=== PATIENT | female | born 1965 | race Two or more races ===

== ENCOUNTER 2025-09-15 13:07 | Outpatient (REF) | payer BC, SELFPAY ==
--- NOTE | ~2025-09-15 | XR_ITS ---
EXAMINATION: XR SHOULDER 2 OR MORE VIEWS LEFT HISTORY: M25.512 - Pain in left shoulder COMPARISON: There are no prior studies available for comparison. FINDINGS: Five views of the left shoulder are submitted. Osseous mineralization is normal. There is no fracture or dislocation. The glenohumeral and acromioclavicular joint spaces are preserved. The soft tissues are unremarkable. XR/XR shoulder LT min 2V IMPRESSION: Unremarkable examination of the left shoulder. Electronically signed by: Yung Rodriguez MD 09/15/2025 03:46 PM EST RP
--- NOTE | ~2025-09-15 | XR_ITS ---
EXAMINATION: XR HAND 1-2 VIEWS LEFT HISTORY: M79.642 - Pain in left hand COMPARISON: There are no prior studies available for comparison. FINDINGS: Three views of the left hand are submitted. Osseous mineralization is normal. There is no fracture or dislocation. The joint spaces are preserved. The soft tissues are unremarkable. XR/XR hand LT 2V IMPRESSION: Unremarkable examination of the left hand. Electronically signed by: Yung Rodriguez MD 09/15/2025 03:45 PM EST
== END 2025-09-15 13:08 | disposition home or self-care (01) ==
LOC: HO.XRAY 13:07
PROVIDERS: PCP Internal Medicine; Visit Provider Internal Medicine
DX: Z23 Encounter for immunization (principal); M25.512 Pain in left shoulder; M79.642 Pain in left hand; I10 Essential (primary) hypertension; I82.409 Acute embolism and thrombosis of unspecified deep veins of unspecified lower extremity; R73.01 Impaired fasting glucose; G89.29 Other chronic pain; Z79.01 Long term (current) use of anticoagulants; Z79.899 Other long term (current) drug therapy
CPT/HCPCS: 73030; 73120; 90471; 90656; 96127

== ENCOUNTER 2025-09-15 13:07 | Outpatient (AMB) | payer BC, SELFPAY ==
--- NOTE | 2025-09-15 13:10 | A.OFFPC_ITS ---
Vital Signs 09/15/25 13:13 Height 5 ft 2.75 in Weight 192 lb 4 oz BMI 34.3 BP 120/84 Blood Pressure Location Lt brachial Position Sitting Respiration 16 Pulse 91 Pulse Source Pulse Oximeter Temp 97.3 F Temp Source Temporal Artery Scan Pulse Oximetry (%) 97 Oxygen Delivery Method Room Air Intake Visit Reasons: [facility] pt, [facility] Retail Pos Specialist Required: No Accompanied by: Mother Allergies No Known Allergies Allergy (Verified 09/15/25 13:17) Medication List - Last Reconciled 09/15/25 by Alyssa Waldron MD apixaban (Eliquis) 5 mg PO BID atorvastatin 20 mg PO DAILY famotidine (Pepcid AC) 20 mg PO DAILY lidocaine 5% 1 patch topical DAILY linaclotide (Linzess) 72 mcg PO DAILY multivitamin 1 tab PO DAILY Tobacco use date assessed: 09/15/25 Dental Screening Dental Screen Date: 09/15/25 Did you have a dental visit in the last 12 months?: Yes Did you have a dental problem in the last 6 months where you did not have access to dental care?: No Was dental information given to patient?: Patient has dentist HPI HPI Comments History of Present Illness Details The patient is a 59 year old female presenting to [facility]. Left upper extremity paresthesia and weakness: The patient reports left upper extremity symptoms that began in September 2024, initially as numbness in the thumb. The symptoms have since progressed to include numbness in four fingers, hand swelling, tingling, and significantly reduced box bender strength, causing the patient to drop items. The patient reports right-hand overcompensation and experiences symptoms radiating down the left arm when a specific point on the posterior aspect of the arm is touched. The patient underwent a workup including an EMG exam, neck MRI, neck X-rays all of which were negative for a left-sided etiology. The patient completed a course of physical therapy for the neck without resolution and is currently in a second course of neck-focused physical therapy. Has been to [facility]. Recurrent Deep Vein Thrombosis: The patient has a history of recurrent deep vein thrombosis and is managed with Eliquis 5 mg twice daily. Borderline diabetes- due for repeat a1c Hyperlipidemia: The patient has a history of hyperlipidemia and reports taking atorvastatin. Gastrointestinal Health: The patient manages gastroesophageal reflux with dvwt-[id number] famotidine and takes Linzess 72 mcg for constipation. Social History: - Functional Status: Reports difficulty with fine motor skills and box bender in the left hand, which affects driving and the ability to hold small objects. - Exercise: Currently undergoing physica l therapy focused on the neck. [facility] Medical History (Updated 09/15/25 @ 17:56 by Alyssa Waldron MD) Left hand pain Left shoulder pain History of thrombolytic therapy Cervical radiculopathy Primary hypertension GERD (gastroesophageal reflux disease) Impaired fasting glucose Recurrent deep vein thrombosis (DVT) Surgical History (Updated 09/15/25 @ 13:31 by lAyssa Waldron MD) Previous section History of colonoscopy (~09/17/24) Family History (Updated 09/15/25 @ 13:27 by Alyssa Waldron MD) Mother Colon polyp Social History Housing: Apartment Patient Tobacco Use Status: Never used Tobacco e-Cigarette/Vaping Use: Never Used service: No Current occupational status: employed 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 1. Little interest or pleasure in doing things: not at all 2. Feeling down, depressed, or hopeless: several days 3. Trouble falling or staying asleep, or sleeping too much: not at all 4. Feeling tired or having little energy: several days 5. Poor appetite or overeating: not at all 6. Feeling bad about yourself - or that you are a failure or have let yourself or your family down: not at all 7. Trouble concentrating on things, such as reading the newspaper or watching television: not at all 8. Moving or speaking so slowly that other people could have noticed. Or the opposite - being so fidgety or restless that you have been moving around a lot more than usual: not at all 9. Thoughts that you would be better off or of hurting yourself in some way: not at all Total score: 2 Depression Screening Interpretation: Negative Depression Screening Done: Yes 51974 - PHQ-9 Billing: Yes Source: Developed by Drs. Yung Mcfarlane, Summer Lee, Federico Osei and colleagues, with an educational kenzie from [email or web address]. Thrive Questionnaire Date Thrive assessed: 09/15/25 I am a: Patient What is your living situation today?: I have a steady place to live Within the past 12 months, did the food you bought not last and you didn't have the money to get more?: Never true Within the past 12 months, did you worry whether your food would run out before you got money to buy more?: Never true Do you have trouble paying for medicines?: No Do you have trouble getting transportation to medical appointments?: No Do you have trouble paying your heating and electricity bill?: No Do you have trouble taking care of your child, family member or friend?: No Do you have trouble with day-to-day activities such as bathing, preparing meals, shopping, managing finances, etc.?: No Are you currently unemployed and looking for a job?: No Are you interested in more education?: Yes Please select the resources that you would like help with: Care for elder or disabled Currently or been in a relationship where the following occur: No concerns reported THRIVE Score: 0 AUDIT C Alcohol Use Questionnaire (AUDIT-C) 1. How often do you have a drink containing alcohol?: 2-4 times a month 2. How many drinks containing alcohol do you have on a typical day when you are drinking?: 1 or 2 3. How often do you have six or more drinks on one occasion?: Never Total Score: 2 ANIL-7 AMB Questionnaire ANIL-7 Date ANIL - 7 assessed: 09/15/25 Feeling nervous, anxious, or on edge: 1 = Several days Not being able to stop or control worryin = Several days Worrying too much about different things: 1 = Several days Trouble relaxin = Several days Being so restless that it is hard to sit still: 1 = Several days Becoming easily annoyed or irritable: 1 = Several days Feeling afraid as if something awful might happen: 0 = Not at all Total ANIL-7 score (0-4 normal; 5-9 mild; 10-14 moderate; 15-21 severe): 6 Source: Developed by Drs. Yung Mcfarlane, Summer Lee, Federico Osei and colleagues, with an educational kenzie from [employer] Review of Systems Narrative Review of Systems - Neurological: Reports numbness, tingling, and swelling in the left hand, involving four fingers. - Musculoskeletal: Reports left shoulder pain and neck pain. Physical exam (Primary Care) Vital Signs: Last Vital Signs Temp 97.3 F 09/15/25 13:13 Pulse 91 09/15/25 13:13 Resp 16 09/15/25 13:13 BP 120/84 09/15/25 13:13 Pulse Ox 97 09/15/25 13:13 Oxygen Delivery Method Room Air 09/15/25 13:13 BMI result Body Mass Index 34.3 Tobacco/Smoking Status: Tobacco use Status Tobacco use date assessed 09/15/25 09/15/25 13:11 Patient Tobacco Use Status Never used Tobacco 09/15/25 13:20 e-Cigarette/Vaping Use Never Used 09/15/25 13:20 PHQ-9: PHQ-9 Score PHQ-9: Total score 2 09/15/25 15:02 Depression Screening Interpretation: Negative Thrive Assessment: Date of Thrive Assessment Date Thrive assessed 09/15/25 09/15/25 13:20 Currently or been in a relationship where the following occur: No concerns reported Narrative Physical Exam - Cardiovascular: Normal heart sounds. - Respiratory: Lungs are clear on auscultation bilaterally - Musculoskeletal: Palpation reveals tenderness over the upper trapezius and anterior shoulder. - Neurological: Certification Engineer strength is 5/5 on the right and approximately 4/5 on the left, Office Procedures Flu Questionnaire Does the patient have a severe egg allergy?: No Does the patient have severe life threatening allergies?: No Does the patient have a fever or illness today?: No Has the patient ever had Guillain-Williamson Syndrome?: No Has the patient ever had any past reaction to a flu shot?: No Immunizations Fluarix [id number] (PF) 45 mcg (15 mcg x 3)/0.5 mL IM syringe Performing Provider: Alyssa Waldron MD Performing Location: [facility] [place] Adult Primary Care-10 HD Administered by: Lianna Roth CMA on 09/15/25 14:22 Dose Route Admin Location Dispensed Lot Number Expiration Date NEC Cardiology Technologist 0.5 mL IM Right Deltoid 0.5 mL [id number] 04/21/26 29501-907-92 [employer] Clothing VIS Given Date VIS Provided VIS Publication Date 09/15/25 Single Vaccine 24 Eligibility Eligibility Date Funding Source Not [facility] Eligible 09/15/25 [facility] Coding Level of Care Code Est Pt Level 4 (20863) Complex visit Add On G2211 Diagnoses Primary hypertension I10 Recurrent deep vein thrombosis (DVT) I82.409 Impaired fasting glucose R73.01 Chronic left shoulder pain M25.512; G89.29 Chronicity: chronic Additional Codes PHQ-9 - 57437 - PHQ-9 Billing: Yes ([id number]) Assessment & Plan Assessment & Plan (1) Primary hypertension: Code(s): I10 - Essential (primary) hypertension Category: Medical (2) Recurrent deep vein thrombosis (DVT): Code(s): I82.409 - Acute embolism and thrombosis of unspecified deep veins of unspecified lower extremity Category: Medical (3) Impaired fasting glucose: Code(s): R73.01 - Impaired fasting glucose Category: Medical (4) Left shoulder pain: Code(s): M25.512 - Pain in left shoulder Category: Medical Qualifiers: Chronicity: chronic Qualified Code(s): M25.512 - Pain in left shoulder; G89.29 - Other chronic pain Plan Assessment and Plan 1. Left upper extremity paresthesia and weakness - The patient presents with progressive numbness, weakness, and swelling in the left hand and arm since last September. Despite a negative workup for cervical radiculopathy (including MRI, X-ray, and NCV), symptoms persist. The physical exam confirms reduced left box bender strength. The etiology remains unclear, and further investigation is warranted to explore pathology distal to the cervical spine. - Plan: Order X-rays of the left shoulder and left hand. Request records from prior MRI and EMG studies. Consider a referral to Physical Medicine and Rehabilitation for a second opinion pending imaging results. 2. Health Maintenance - Plan: Order fasting labs, including an A1c, lipid panel, and liver/kidney function tests. 3. History of recurrent DVT - The patient is stable on current anticoagulation therapy. - Plan: Continue Eliquis 5 mg twice daily. The patient will notify the office if refills are needed. 4. Hyperlipidemia - The condition is medically managed. - Plan: Continue atorvastatin. Monitor with the planned lipid panel. 5. Gastrointestinal issues (GERD, constipation) - The patient's symptoms are controlled with current medications. - Plan: Continue oauz-tdd-irvzhwz famotidine and prescription Linzess 72 mcg. 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 Plan - Imaging: An X-ray of the left shoulder and left hand will be obtained. - Labs: Fasting labs will be drawn to check A1c, cholesterol profile, and liver/kidney function. - Referrals: A potential referral to Physical Medicine and Rehabilitation will be considered after reviewing the new imaging results. - Medications: The patient will continue with the current medication regimen, including Eliquis, atorvastatin, and Linzess. - Follow up in 6 months for physical Discussion Notes We discussed the persistent and progressing symptoms of numbness, tingling, and weakness in the patient's left hand and arm, which have been present since last September. I informed the patient that depending on the results, a referral to a physical medicine and workplace rehabilitation officer might be the next step for a second opinion. Patient Instructions - Please proceed to get X-rays of your left shoulder and left hand today as ordered. - You will need to go to the lab for blood work. Please fast (do not eat or drink anything other than water) before you go. This will check your blood sugar, cholesterol, and kidney and liver function. - Continue taking all of your current medications as prescribed. - Continue with your current physical therapy appointments. - We may refer you to a specialist for Physical Medicine and Rehabilitation for a second opinion after we review your X-ray results. - Be sure to follow up with your poolroom/poolhall manager (stomach doctor). Orders: Orders Influenza [id number] Immunization Today Z23 - Encounter for immunization Comprehensive Met. Panel Today I10 - Essential (primary) hypertension, I82.409 - Acute embolism and thrombosis of unspecified deep veins of unspecified lower extremity, R73.01 - Impaired fasting glucose Hemoglobin A1c Today I10 - Essential (primary) hypertension, I82.409 - Acute embolism and thrombosis of unspecified deep veins of unspecified lower extremity, R73.01 - Impaired fasting glucose XR shoulder LT min 2V Today M25.512 - Pain in left shoulder XR hand LT 2V Today M79.642 - Pain in left hand Complete Blood Count Auto Diff Today I10 - Essential (primary) hypertension, I82.409 - Acute embolism and thrombosis of unspecified deep veins of unspecified lower extremity, R73.01 - Impaired fasting glucose Lipid Panel Today I10 - Essential (primary) hypertension, I82.409 - Acute embolism and thrombosis of unspecified deep veins of unspecified lower extremity, R73.01 - Impaired fasting glucose Microalbumin, Random (w Creat) Today I10 - Essential (primary) hypertension
[2025-09-15 13:13] VITALS: BP 120/84; PULSE 91; RESP 16; TEMP 36.3; O2SAT 97; BMI 34.3
--- OUTSIDE RECORDS SUMMARY | 2025-09-15 17:41 | XMS_ITS | Clinical Summary ---
Author Organization [facility] Address [address] [place] [phone] Phone Care Team Providers Care Manager Mobile Name Role Phone Alyssa Waldron MD Primary Care Provider [phone] Allergies No known active allergies Medications apixaban (Eliquis) 5 mg tablet Take 1 tablet (5 mg total) by mouth 2 (two) times a day. Active linaCLOtide (Linzess) 72 mcg capsule Take 1 capsule (72 mcg total) by mouth 1 (one) time each day. Active amLODIPine (NORVASC) 5 mg tablet Take by mouth 1 (one) time each day. Active atorvastatin (LIPITOR) 20 mg tablet Take 1 tablet (20 mg total) by mouth at bedtime. Active multivit-min/ir on/FA/vit K/lut (CENTRUM SILVER WOMEN ORAL) Take by mouth. Active famotidine (PEPCID AC ORAL) Take by mouth. Active albuterol HFA (PROAIR HFA ; PROVENTIL HFA ; VENTOLIN HFA) 90 mcg/actuation inhaler Inhale 2 puffs by mouth every 6 (six) hours if needed for wheezing. Active glucose 4 gram chewable tablet Chew 4 tablets (16 g total) if needed for low blood sugar. Active Surgical History Surgery Date Site/Laterality Comments SECTION PROCEDURE: [facility] DELIVERY ONLY OTHER SURGICAL HISTORY PROCEDURE: [facility] LIG/TRNSXJ FLP TUBE ABDL/VAG APPR UNI/BI COLONOSCOPY 09/08/20 08 PROCEDURE: [facility] COLONOSCOPY FLX DX W/COLLJ SPEC WHEN PFRMD; COMMENT: Normal SHOULDER SURGERY PROCEDURE: HISTORICAL SHOULDER SURGERY; COMMENT: l shoulder COLONOSCOPY 2007 PROCEDURE: HISTORICAL COLONOSCOPY; COMMENT: normal COLONOSCOPY 11/06/15 PROCEDURE: HISTORICAL COLONOSCOPY; COMMENT: normal ESOPHAGOGASTRODUODENOSCOPY 09/08/20 PROCEDURE: [facility] ESOPHAGOGASTRODUODENOSCOPY TRANSORAL DIAGNOSTIC; COMMENT: Normal on omeprazole 20 mg qam ESOPHAGOGASTRODUODENOSCOPY 11/06/15 PROCEDURE: [facility] EGD TRANSORAL BIOPSY SINGLE/MULTIPLE; COMMENT: normal, with normal duodenal biiopspies ANGIOPLASTY ILIAC ARTERY WIT H STENT Left Medical History Medical History Date Comments Cervicalgia 06/30/2006 DX:Cervicalgia Backache, unspecified 06/30/2006 DX:Backach e, unspecified GERD (gastroesophageal reflu x disease) 09/08/2008 DX:GERD (gastroesophageal re flux disease); COMMENT: Normal EGD on omeprazole 09/08/2008. Iron deficiency anemia secon dejan to blood loss (chronic) 09/08/2008 DX:Iron deficiency anemia se condary to blood loss (chronic); COMMENT: Negative colonoscopy 09/08/2008, no colon cancer screening needed for 10 years. Iron deficiency anemia secon dejan to blood loss (chronic) 09/08/08 DX:Iron deficiency anemia se condary to blood loss (chronic) Family History Medical History Relation Name Comments Colon cancer Aunt maternal, dx at age 60 Hypertension Father Hypertension Maternal Grandfather Breast cancer Mother Diabetes Mother Breast cancer Mother's side great gm MGGM Relation Name Status Comments Aunt Father Maternal Grandfather Mother Mother's side great gm Alive Social History Tobacco Use Types Packs/Day Years Used Date Smoking Tobacco: Never Smokeless Tobacco: Never Tobacco Cessation:Counseling Given: Not Answered Alcohol Use Standard Drinks/Week Comments Yes 0 (1 standard drink = 0.6 oz pur e alcohol) OCCASIONAL Interpersonal Safety Answer Date Record ed Physical Abuse Unrecognized value 09/17/2024 Verbal Abuse Unrecognized value 09/17/2024 Comments No Sex and Gender Information Value Date Recorded Sex Assigned at Not on file Legal Sex Female 4:51 PM EST Gender Identity Not on file Sexual Orientation Not on file Obstetrics History Last Filed Vital Signs Vital Sign Reading Time Taken Comments Blood Pressure 109/85 09/17/2024 11:49 AM EST Pulse 80 09/17/2024 11:49 AM EST Temperature 36.3 C (97.4 F) 09/17/2024 10:00 AM EST Respiratory Rate 19 09/17/2024 11:49 AM EST Oxygen Saturation 97% 09/17/2024 11:49 AM EST Inhaled Oxygen Concentration - - Weight 84.8 kg (187 lb) 09/17/2024 10:00 AM EST Height 157.5 cm (5' 2 ) 09/17/2024 10:00 AM EST Body Mass Index 34.2 09/17/2024 10:00 AM EST Plan of Treatment Health Maintenance Due Date Last Done Comments Breast Cancer Screening 1965 Cervical Cancer Screening: P ap Smear 1985 Pneumococcal Vaccine: 50+ Years (1 of 1 - PCV) 2014 Zoster Vaccines (1 of 2) 2014 Cholesterol Screening (Lipid Panel) 08/07/2024 HIV Screening 08/07/2024 Hepatitis C Screening 08/07/2024 Social Influencers of Health Screening 08/07/2024 Depression Screening 10/23/2024 COVID-19 Vaccine (4 - 2024-2 6 season) 2025 10/01/2021, 12/21/2020, 12/01/2020 Influenza Vaccine (#1) 2025 , 09/22/2022, 09/07/2020 DTaP,Tdap,and Td Vaccines (3 - Td or Tdap) 04/10/2027 04/10/2017, 06/20/2008 Colorectal Cancer Screening: Colonoscopy 10/02/2034 10/02/2024, 09/17/2024 RSV Immunization Adult Patients (1 - 1-dose 75+ series) 2039 HIB Vaccines Aged Out No longer eligi ble based on patient's age to complete this topic HPV Vaccines Aged Out No longer eligi ble based on patient's age to complete this topic Hepatitis A Vaccines Aged Out No long er eligible based on patient's age to complete this topic Hepatitis B Vaccines Aged Out No long er eligible based on patient's age to complete this topic IPV Vaccines Aged Out No longer eligi ble based on patient's age to complete this topic MMR Vaccines Aged Out No longer eligi ble based on patient's age to complete this topic Meningococcal ACWY Vaccine Aged Out N o longer eligible based on patient's age to complete this topic Meningococcal B Vaccine Aged Out No l onger eligible based on patient's age to complete this topic RSV Immunization Patients Under 20 months Aged Out No longer eligible b ased on patient's age to complete this topic Varicella Vaccines Aged Out No longer eligible based on patient's age to complete this topic Medical Devices Implanted Type Area Valance Cutter Device Identifier Shelf Expiration Date Model / Serial / Lot Stents Stents Left: Groin Procedures Procedure Name Priority Date/Time Associated Diagnosis Comments COLONOSCOPY Routine 10/02/2024 2:07 PM EST from Last 3 Months or Most Recently Relevant to Health Maintenance Results * COLONOSCOPY (10/02/2024 2:07 PM EST) Anatomical Region Laterality Modality Endoscopy us Historical Provider GI~PROCEDURE ORDERABLES F inal Result from Last 3 Months or Most Recently Relevant to Health Maintenance Insurance Care Teams Manager Mobile Relationship Specialty Start Date End Date Alyssa Waldron MD [address] [place] [address] PCP - General Internal Medicine 02/14/17
== END 2025-09-15 14:41 | disposition home or self-care (01) ==
LOC: HO.HMCHD 13:07
PROVIDERS: PCP Internal Medicine; Visit Provider Internal Medicine
DX: I10 Essential (primary) hypertension (principal); I82.409 Acute embolism and thrombosis of unspecified deep veins of unspecified lower extremity; R73.01 Impaired fasting glucose; M25.512 Pain in left shoulder; G89.29 Other chronic pain; Z23 Encounter for immunization

== ENCOUNTER → 2025-09-15 15:00 | Outpatient (BNV) | payer BC, SELFPAY | PROVIDERS: PCP Internal Medicine; Visit Provider Radiology Diagnostic Radiology | DX: M25.512 Pain in left shoulder (principal); M79.642 Pain in left hand | CPT/HCPCS: 73030; 73120 ==

== ENCOUNTER 2025-10-10 11:20 | Outpatient (AMB) | payer BC, SELFPAY ==
[2025-10-10 11:28] VITALS: BMI 33.7
--- NOTE | 2025-10-10 11:28 | A.PHYSOV_ITS ---
Vital Signs 10/10/25 11:28 Height 5 ft 2.75 in Weight 189 lb BMI 33.7 Intake Visit Reasons: [facility] [place]- lft shoulder/arm, neck pain Intake Note: Patient is a 59 year old female here for a new patient office visit. She has been referred for neck shoulder and arm pain. [employer] Required: No Allergies No Known Allergies Allergy (Verified 10/10/25 11:29) HPI Comments Details: History of Present Illness The patient is a 59 year old female presenting for evaluation of left upper extremity pain and paresthesia. Her symptoms began approximately one year ago as a neck strain from her work setup, which then radiated to her shoulder. Initial self-treatment included hot and cold packs. The symptoms progressed to include numbness in her left thumb, which later extended to her index finger. Currently, she experiences numbness, tingling, and occasional itching in her left thumb, index, middle, and ring fingers, with no involvement of the pinky finger. She also reports a sensation of swelling in the affected hand and pain from the thumb to the middle finger. 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 Her prior workup includes neck X-rays performed at [facility], which were normal. She has completed two courses of physical therapy at [facility], one for eight weeks and another for five weeks. A recent shoulder X-ray was normal, and a neck MRI revealed only minimal osteoarthritis and minor disc issues without nerve compression. She also had a negative EMG of the upper extremity at [facility] during the summer. Her relevant past medical history includes taking Eliquis, which precludes the use of ibuprofen. She denies a history of diabetes. I reviewed the referring provider's no prior to consultation. Pain Description - Onset and Timing: Began about a year ago as a neck strain. - Quality and Character: Described as pain, numbness, tingling, and sometimes itching. - Primary Location and Radiation: Originates in the neck, radiates to the left shoulder, down the back of the arm, into the forearm, wrist, and the first four fingers of the left hand. - Severity: Rated at 4-5/10 during the visit, escalating to 8-9/10 by nighttime after work. - Exacerbating Factors: Worsened by work activities and gripping. - Relieving Factors: Partially relieved by Tylenol, lidocaine patches, and heat. - Interference with Function: Causes difficulty with gripping, resulting in objects slipping from her hand. Procedure: Left carpal tunnel injection silver 2024 Results - Imaging: - Neck X-ray: Normal. - Neck MRI: Showed minimal osteoarthritis and minor disc issues with no obvious pinched nerve or spinal cord compression. - Left shoulder X-ray: Recently performed and was normal. - Tests and Diagnostics: - Electromyography (EMG) of the upper extremity: Performed in the summer and was negative. [facility] Medical History (Updated 10/10/25 @ 12:32 by JOSE MARTIN Nur) Left hand pain Left shoulder pain History of thrombolytic therapy Cervical radiculopathy Primary hypertension GERD (gastroesophageal reflux disease) Impaired fasting glucose Recurrent deep vein thrombosis (DVT) Surgical History Previous section History of colonoscopy (~09/17/24) Family History (Updated 09/15/25 @ 13:27 by Alyssa Waldron MD) Mother Colon polyp Social History Housing: Apartment Patient Tobacco Use Status: Never used Tobacco e-Cigarette/Vaping Use: Never Used service: No Current occupational status: employed 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 - Reports decreased boring mill operator for metal strength in the left hand. - Denies arm going numb at night. - Musculoskeletal: Reports a history of neck strain with pain radiating to the left shoulder and down the arm to the wrist. - Reports her left hand feels swollen. - Reports pain with gripping. Physical Exam Exam Exam: Physical Exam - Neck: No tenderness to palpation of the midline or left cervical spine. - Tenderness noted on palpation of the right side of the neck. - Full, non-painful range of motion with flexion, extension, and rotation. - Spurling's test on the left is positive for reproduction of paresthesia into the shoulder and arm. - Spurling's test on the right is negative. - Musculoskeletal: Tenderness to palpation over the left shoulder. - Normal active range of motion of the shoulders including forward flexion and abduction without pain. - Weakness noted with resisted external rotation of the left shoulder. - Passive range of motion of the left shoulder elicits discomfort in the posterior aspect rather than in the joint itself. - Extremities: Weak boring mill operator for metal strength on the left compared to the right. No thenar atrophy. - Tinel's sign at the left wrist is positive, eliciting tingling and numbness. Vital Signs: BMI result Body Mass Index 33.7 Office Procedures AMB Carpal Tunnel Injection AMB Carpal Tunnel Injection Details: Left Carpal tunnel injection. Patient was educated about the risks, complications and benefits of the procedure including but not limited to increased serum glucose, infection, nerve damage, bleeding, tendon/ligament damage and pain. Patient's questions were answered. Verbal consent was obtained. I cleansed the volar aspect of the wrist in line with the fourth digit, 1 cm proximal to the crease of the wrist with Betadine, 40 mg of Kenalog was injected into the carpal tunnel with a 25-gauge needle. Patient denied any paresthesia. The patient tolerated the procedure well without immediate complication. Patient was cleansed with alcohol prep and a Band-Aid was applied. Carpal Tunnel Injection -96274: Left All charges added?: Procedure code (CPT) selection complete Office Meds Kenalog 40 mg/mL suspension for injection Performing Provider: JOSE MARTIN Nur Performing Location: [facility] Administered by: JOSE MARTIN Nur on 10/10/25 12:29 Dose Route Admin Location Dispensed Lot Number Expiration Date [facility] Personal [employer]egal 40 mg peripheral nerve block 1 mL 84120-326 9-1 [employer] Total Dispensed Waste 1 mL 0 % Assessment & Plan Assessment & Plan (1) Cervicalgia: Code(s): M54.2 - Cervicalgia Category: Medical (2) Impingement of left shoulder: Code(s): M25.812 - Other specified joint disorders, left shoulder Category: Medical (3) Carpal tunnel syndrome, left: Code(s): G56.02 - Carpal tunnel syndrome, left upper limb Category: Medical Plan Pain Management - Analgesia: Current pain level is 4-5/10, increasing to 8-9/10 after work. - She manages her pain with Tylenol, lidocaine patches, and heat application. - She is unable to take ibuprofen due to concurrent use of Eliquis. - Activities of Daily Living: Pain and weakness interfere with her ability to boring mill operator for metal objects, causing her to drop them. - Her boring mill operator for metal is also affected while driving. - Affect: Not discussed. - Adverse Effects: Not discussed. - Aberrant Drug Related Behaviors: Not discussed. Plan Patient was informed and verbally consented to the use of an ambient scribe for clinic note documentation during this visit. 1. Left Carpal Tunnel Syndrome The patient's clinical presentation, including paresthesia in the first four digits of the left hand and a positive Tinel's sign, is highly suggestive of carpal tunnel syndrome. Cervical radiculopathy is considered less likely given the benign neck MRI findings. Despite a prior negative EMG, a subclinical presentation is possible. A diagnostic and therapeutic left carpal tunnel injection was recommended and performed to both confirm the diagnosis and provide relief. The risks, benefits, and alternatives were discussed, and the patient provided consent. Although EMG was negative she may have subclinical carpal tunnel syndrome with positive Tinel test. Improvement in hand and arm symptoms following the injection will confirm the diagnosis. A repeat EMG will be considered in another year or two if symptoms do not resolve. 2. Left Shoulder Pain The patient has tenderness and some weakness in the left shoulder, but the exam is otherwise largely unremarkable with good range of motion and a normal recent X-ray. It is suspected that the shoulder discomfort may be referred pain from the carpal tunnel syndrome, which can radiate proximally. If her symptoms do not markedly improved we may consider further evaluation with her left shoulder. The plan is to first address the more symptomatic carpal tunnel issue with an injection. Options such as a shoulder injection or a shoulder MRI were discussed but deferred pending the outcome of the wrist injection. Discussion Notes I explained to the patient that based on her clinical exam findings, particularly the positive Tinel's sign and symptom distribution, carpal tunnel syndrome is the most likely diagnosis, despite a previously negative EMG. I informed her that her neck is unlikely to be the primary source, given her benign MRI results, and that carpal tunnel can cause pain that radiates up the arm. I reviewed the treatment options, including a diagnostic/therapeutic injection into the carpal tunnel or the shoulder, or proceeding with a shoulder MRI. I explained that an injection can serve as a diagnostic tool to confirm the source of her symptoms. I recommended proceeding with a left carpal tunnel injection today, as her hand symptoms are more pronounced than her shoulder symptoms. We discussed the risks of the procedure, including a small risk of infection, bleeding, or nerve damage. I explained that I would not use a local anesthetic to avoid significant hand numbness that would impair her ability to drive home. The patient understood the rationale and consented to proceed with the left carpal tunnel injection. Patient Instructions - You have received a steroid injection in your left wrist to help with your hand numbness and pain. - Pay attention to whether this injection helps your hand and arm symptoms, as this will help us confirm the diagnosis. - Risks of the injection are low but include infection, bleeding, and nerve damage. - You should be safe to drive home as no numbing medication was used. - Continue to use Tylenol, heat, or lidocaine patches for pain. - Do not take ibuprofen or similar anti-inflammatory medicines because you are o n Eliquis. - We will follow up to see how your symptoms respond to the injection and decide on the next steps. Orders: Orders AMB Carpal Tunnel Injection Today G56.00 - Carpal tunnel syndrome, unspecified upper limb Coding Level of Care Code New Pt Level 4 (45027) Diagnoses Cervicalgia M54.2 Impingement of left shoulder M25.812 Carpal tunnel syndrome, left G56.02 CPT Codes AMB Carpal Tunnel Injection - Carpal Tunnel Therapeutic Injection - : Left ([id number])
--- OUTSIDE RECORDS SUMMARY | 2025-10-10 13:23 | XMS_ITS | Clinical Summary ---
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 Mechanic Name Role Phone Alyssa Waldron MD Primary Care Provider [phone]- [phone] Allergies No known active allergies Medications apixaban [...] History Surgery Date Site/Laterality Comments SECTION PROCEDURE: MI DELIVERY ONLY OTHER SURGICAL HISTORY PROCEDURE: MI LIG/TRNSXJ FLP TUBE ABDL/VAG APPR UNI/BI COLONOSCOPY 09/08/20 08 PROCEDURE: MI COLONOSCOPY FLX DX W/COLLJ SPEC WHEN PFRMD; COMMENT: Normal SHOULDER SURGERY PROCEDURE: HISTORICAL SHOULDER SURGERY; COMMENT: l shoulder COLONOSCOPY 2007 PROCEDURE: HISTORICAL COLONOSCOPY; COMMENT: normal COLONOSCOPY 11/06/15 PROCEDURE: HISTORICAL COLONOSCOPY; COMMENT: normal ESOPHAGOGASTRODUODENOSCOPY 09/08/20 PROCEDURE: MI ESOPHAGOGASTRODUODENOSCOPY TRANSORAL DIAGNOSTIC; COMMENT: Normal on omeprazole 20 mg qam ESOPHAGOGASTRODUODENOSCOPY 11/06/15 PROCEDURE: MI EGD TRANSORAL BIOPSY SINGLE/MULTIPLE; COMMENT: normal, with [...] on file Sexual Orientation Not on file Last Filed Vital Signs Vital Sign Reading [...] this topic Medical Devices Implanted Type Area Machine Stapler Device Identifier Shelf Expiration Date Model / [...] Most Recently Relevant to Health Maintenance Insurance [facility] Care Teams Business Machine Mechanic Relationship Specialty Start Date End Date Alyssa Waldron MD [address] [place] [address] PCP - General Internal Medicine 02/14/17
== END 2025-10-10 12:00 | disposition home or self-care (01) ==
LOC: HO.HPHYS 11:20
PROVIDERS: PCP Internal Medicine; Visit Provider Physician Assistant
DX: M54.2 Cervicalgia (principal); M25.812 Other specified joint disorders, left shoulder; G56.02 Carpal tunnel syndrome, left upper limb
CPT/HCPCS: 20526; 99204

== ENCOUNTER → 2025-10-10 11:20 | Outpatient (BNVA) | payer BC, SELFPAY | PROVIDERS: PCP Internal Medicine; Visit Provider Physician Assistant | DX: G56.02 Carpal tunnel syndrome, left upper limb (principal) | CPT/HCPCS: 20526; J3301 ==

== ENCOUNTER 2025-10-17 08:45 | Outpatient (REF) | payer BC, SELFPAY ==
--- OUTSIDE RECORDS SUMMARY | 2025-10-17 08:51 | XMS_ITS | Clinical Summary ---
Author Organization [facility] Address [address] [place] [phone] Phone Care Team Providers Care Escort Car Driver Name Role Phone Alyssa Waldron MD Primary Care Provider [phone]- [phone] Allergies No known active allergies Medications apixaban [...] History Surgery Date Site/Laterality Comments SECTION PROCEDURE: PA DELIVERY ONLY OTHER SURGICAL HISTORY PROCEDURE: PA LIG/TRNSXJ FLP TUBE ABDL/VAG APPR UNI/BI COLONOSCOPY 09/08/20 08 PROCEDURE: PA COLONOSCOPY FLX DX W/COLLJ SPEC WHEN PFRMD; COMMENT: Normal SHOULDER SURGERY PROCEDURE: HISTORICAL SHOULDER SURGERY; COMMENT: l shoulder COLONOSCOPY 2007 PROCEDURE: HISTORICAL COLONOSCOPY; COMMENT: normal COLONOSCOPY 11/06/15 PROCEDURE: HISTORICAL COLONOSCOPY; COMMENT: normal ESOPHAGOGASTRODUODENOSCOPY 09/08/20 PROCEDURE: PA ESOPHAGOGASTRODUODENOSCOPY TRANSORAL DIAGNOSTIC; COMMENT: Normal on omeprazole 20 mg qam ESOPHAGOGASTRODUODENOSCOPY 11/06/15 PROCEDURE: PA EGD TRANSORAL BIOPSY SINGLE/MULTIPLE; COMMENT: normal, with [...] this topic Medical Devices Implanted Type Area Scrap Bunch Maker Device Identifier Shelf Expiration Date Model / [...] Most Recently Relevant to Health Maintenance Insurance [facility] Care Teams Escort Car Driver Relationship Specialty Start Date End Date Alyssa Waldron MD [address] [place] [address] PCP - General Internal Medicine 02/14/17
[2025-10-17 09:26] LABS: MANUAL DIFF FLAG NO
[2025-10-17 10:32] LABS: Hematocrit 45.3 % (37.0-47.0); Hemoglobin 14.2 g/dl (12.0-16.0); Imm Gran Abs Auto 0.03 X10*3/uL (0.00-0.03); Imm Gran Pct Auto 0.4 % (0.0-0.4); Lymphocytes Absolute Auto 2.5 X10*3/uL (1.2-4.9); Mean Corpuscular HGB Conc 31.3 g/dl (31.0-35.0); Mean Corpuscular Hemoglobin 26.1 pg (27.0-33.0); Mean Corpuscular Volume 83.1 fL (80.0-98.0); NRBC Abs Auto 0.000 X10*3/uL (0.0-0.012); NRBC Pct Auto 0.0 /100WBC (0.0-0.2); Platelet Count 313 X10*3/uL (160-400); Red Blood Count 5.45 X10*6/uL (4.20-5.50); White Blood Count 6.9 X10*3/uL (4.8-10.8)
[2025-10-17 10:51] LABS: Microalbum/Creatinine Ratio Ur 21.7 ug/mg cr (<30)
[2025-10-17 10:53] LABS: Alanine Aminotransferase 30 U/L (0-31); Albumin Level 4.5 g/dL (3.5-5.0); Alkaline Phosphatase 79 U/L (39-117); Anion Gap 12 (12-20); Aspartate Amino Transferase 23 U/L (5-31); Blood Urea Nitrogen 20 mg/dL (9-16); Calcium 9.3 mg/dL (8.4-10.2); Carbon Dioxide 28 mmol/L (22-29); Chloride 108 mmol/L (96-108); Cholesterol 207 mg/dL (<200); Estimated Glomerular Filt Rate > 60; HDL Cholesterol 54 mg/dL (>40); Potassium 3.8 mmol/L (3.3-5.1); Sodium 144 mmol/L (135-145); Total Protein 7.3 g/dL (6.5-8.0); Triglycerides 64 mg/dL (<150)
== END 2025-10-17 08:46 | disposition home or self-care (01) ==
LOC: HO.HKASLDS 08:45
PROVIDERS: PCP Internal Medicine; Visit Provider Internal Medicine
DX: I10 Essential (primary) hypertension (principal); I82.409 Acute embolism and thrombosis of unspecified deep veins of unspecified lower extremity; R73.01 Impaired fasting glucose
CPT/HCPCS: 36415; 80053; 80061; 82043; 82570; 83036; 85025